=== PATIENT | female | born 1990 | race Caucasian/White ===

== ENCOUNTER 2022-02-14 12:03 | Outpatient (CLI) | payer MEDICAID, SELFPAY | END 2022-02-14 12:04 | disposition home or self-care (01) | LOC: LONREF 12:05 | PROVIDERS: PCP Family Medicine; Visit Provider Family Medicine | DX: R00.0 Tachycardia, unspecified (principal); R53.1 Weakness; E88.81 Metabolic syndrome and other insulin resistance | CPT/HCPCS: 84443 ==

== ENCOUNTER 2023-04-06 08:30 | Outpatient (CLI) | payer MEDICAID, SELFPAY | END 2023-04-06 08:31 | disposition home or self-care (01) | PROVIDERS: PCP Family Medicine; Visit Provider Family Medicine | DX: Z00.00 Encounter for general adult medical examination without abnormal findings (principal); E66.9 Obesity, unspecified; E88.810 Metabolic syndrome; Z13.1 Encounter for screening for diabetes mellitus; Z13.0 Encounter for screening for diseases of the blood and blood-forming organs and certain disorders involving the immune mechanism; Z13.6 Encounter for screening for cardiovascular disorders; F32.9 Major depressive disorder, single episode, unspecified | CPT/HCPCS: 80053; 80061; 82306; 82607; 84443 ==